=== PATIENT | female | born 1960 | race African-American/Black ===

== ENCOUNTER → 2017-07-18 | Outpatient (CLI) | payer BC ==
[~2017-07-18] MED LIST: ALPRAZOLAM 0.0.25 MG PO; ALPRAZOLAM 0.50.5 M1 PO; AMBIEN 10 MG TA10 MG PO; AMBIEN PO; ASA81BEC PO; CALCIUM CITRAT1 EA15 PO; CELEBREX; CYMBALTA; DIOVAN; DIOVAN HCT 1601 EACH PO; DIOVAN40 MG PO; EFFEXOR XR150 MG PO; ELAVIL PO; FERRO-TIME325 MG PO; GABAPENTIN; GLUCOSAMINE &1 EACH PO; HCTZ; HYDROCODON-ACE1 EAC5 PO; HYDROCODONE; IBUPROFEN 800800 M1 PO; K-DUR 20 MEQ T20 MEQ PO; KLOR-CON M2020 MEQ PO; LASIX 20 MG TAB20 MG PO; LEVAQUIN 500 M500 M2 PO; LYRICA; MELOXICAM15 MG PO; MULTIVITAMINS; NEURONTIN800 MG PO; OMEPRAZOLE20 MG PO; PERCOCET 5-3251 EACH PO; PLAQUENIL200 MG PO; POTASSIUM20; PREDNISONE; PREDNISONE 10 M10 M1 PO; PREDNISONE 5 MG5 M1 PO; PRENATAL PLUS1 EAC5 PO; UNISOM SLEEP AI25 MG PO; ZESTRIL20 MG PO; [UNRECOGNIZED DRUG - OTHER] PO
== END ==
LOC: RAD 10:41
DX: M47.896 Other spondylosis, lumbar region (principal); M79.604 Pain in right leg

== ENCOUNTER → 2017-07-31 | Outpatient (CLI) | payer BC | LOC: MRI 09:50 | DX: M47.896 Other spondylosis, lumbar region (principal); M48.06 Spinal stenosis, lumbar region ==

== ENCOUNTER → 2017-08-11 | Outpatient (CLI) | payer BC, OTHER ==
[~2017-08-11] VITALS: Ht 175.3 cm; Wt 104.3 kg
[~2017-08-11] MED LIST changes: +NORCO 10-325 T1 EACH PO; +NORVASC5 MG PO; +OMEPRAZOLE 20 M20 M1 PO; +PAMELOR25 MG PO
--- NOTE | ~2017-08-11 | HPC ---
[facility] [address] [address] PAIN MANAGEMENT CONSULTATION Name: MAY MAURER Room #: REG ERROL Hirsch.#: [id number] Admission: 08/11/17 Attend Phys: Sandi Dotson MD Discharge: Date of : 60 Report #: [id number] THIS REPORT FOR: //name// CC: Lynnette Dotson DATE OF SERVICE: 08/11/2017 CHIEF COMPLAINT: Pain in the leg and down into the muscles. FOLLOWUP HISTORY: The patient is a 56-year-old female who has been seen in the pain clinic for low back and leg discomfort. She notes pain has been problematic since 2014. Notes that the pain is worse with walking, standing, sitting and sometimes improves by use of hot baths. She describes it as continuous, steady, constant, shooting, burning, cramping, pulling, throbbing, tender, and rates it as 10/10 at this juncture. She notes that it can be problematic on both sides, right side more problematic than left. She has a history of lupus and chronic pain. PAST MEDICAL HISTORY: 1. Hypertension. 2. Lupus. 3. Chronic pain. ALLERGIES: No known drug allergies. MEDICATIONS: Norvasc 5 mg daily, omeprazole 20 mg daily, Pamelor 25 mg at bedtime, Effexor 150 mg daily, Diovan/hydrochlorothiazide, Plaquenil 200 mg daily, potassium 20 mEq, Neurontin 800 mg b.i.d., prednisone 5 mg b.i.d., hydrocodone 10/325 q.4 p.r.n. PAST SURGICAL HISTORY: No surgeries. 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 Denies use of tobacco, denies use of alcoholic beverages. REVIEW OF SYSTEMS: Questionnaire in the chart indicates generally good health, wears glasses, numbness and tingling in her legs. Otherwise, unremarkable. PHYSICAL EXAMINATION: Blood pressure 134/88, pulse 83, respiratory rate 20, room air saturation 100%. Height 5 feet 9 inches, weight 230 pounds, BMI is 33. The patient has pain and discomfort, which radiates down in the lower portion of her back and right leg as well as the left leg more problematic than right side. She rates it as an 8/10. It follows: The L4-L5 dermatomal distribution. She is experiencing some cramping, pulling discomfort and some stabbing [facility] [address] [place] [address] PAIN MANAGEMENT CONSULTATION Name: MAY MAURER Room #: REG [facility]#: [id number] Admission: 08/11/17 Attend Phys: Sandi Dotson MD Discharge: Date of : 60 Report #: [id number] sensation. LABORATORY DATA: MRI of the spine dated 07/31/2017 reveals who one at 4, there is diffuse posterior disk bulge. There is moderate bilateral facet arthrosis with thickening of the ligamentum flavum to 7 mm. There is superimposed left paracentral/central disk extrusion which migrates caudally from the disk space approximately 12 mm. There is resulting severe left paracentral canal stenosis identified. Left-sided radicular symptoms involving the L4 through S1 distribution may be noted. At L4-L5, there is a diffuse posterior disk bulge with a superimposed right paracentral extrusion, which migrates cephalad from the disk approximately 15 mm. There is a significant/severe right paracentral and right subarticular stenosis. There is a foraminal disk bulging right greater than left with moderate to severe right neural foraminal stenosis. There is a thickening of the ligamentum flavum with flavum up to 7 mm. At L5-S1, there is a diffuse posterior disk bulge, which abuts the descending right S1 nerve root without evidence of impingement or displacement. There is moderate bilateral facet arthrosis. There is foraminal disk bulging with mild media foraminal stenosis. IMPRESSION: 1. Lumbar radiculopathy in the L4-L5 distribution with findings as described above in the MRI. 2. Hypertension. 3. History of lupus. 4. History of chronic pain. RECOMMENDATIONS: We discussed treatment options with the patient. Risks and benefits of an epidural steroid injection were discussed. Possible complications of the procedure were reviewed. The patient elects to proceed. PROCEDURE NOTE: The patient was placed in the prone position. Fluoroscopy was used to identify the right L4-L5 paraspinal area. This area had been sterilely prepped with Betadine and infiltrated with 0.25% bupivacaine. A total of 80 mg Depo-Medrol, 40 mg triamcinolone and 2 mL of 0.25% bupivacaine was injected. The patient tolerated the procedure well. Her pain decreased from 10 to 5 at the time of discharge. She will follow up in the future as needed. We would like to thank you for letting us participate in her care. We hope she continues to improve. <ELECTRONICALLY SIGNED> By: Sandi Dotson MD 08/25/17 [id number] Sandi Dotson MD /FABIOLA
[2017-08-11 11:23] VITALS: BP 134/88
== END | disposition home or self-care (01) ==
LOC: PAIN 07:19
DX: M54.16 Radiculopathy, lumbar region (principal); I10 Essential (primary) hypertension; G89.29 Other chronic pain; Z68.33 Body mass index [BMI] 33.0-33.9, adult; Z79.899 Other long term (current) drug therapy